=== PATIENT | female | born 1960 | race Caucasian/White ===

== ENCOUNTER 2020-02-21 09:47 | Observation (INO) | payer OTHER ==
[2020-02-21] MEDS ORDERED: LORazepam 2 MG/ML INJ IV STA (10:05)
--- NOTE | 2020-02-21 10:09 | ED ---
General Adult HPI - General Chief complaint: Altered Mental Status Stated complaint: AMS Time Seen by Provider: 02/21/20 09:53 Source: patient, RN notes reviewed Mode of arrival: EMS Limitations: no limitations - History of Present Illness Initial comments: Patient is a pleasant 59-year-old female presenting to the emergency department following an unresponsive episode. Patient has been at [place] for the past couple of days forbenzodiazepine withdrawal. Patient was placed on phenobarbital. Patient does remember waking up this morning. Does not much remember this episode. No history of similar symptoms previously. Patient Less Responsive Patient States She Feels Close to Normal at This Time However Still Feels Shaky. Patient States She Has Prim Shaky for the past Several Days. Patient Was Previously and Xanax 1 Mg 3 Times A Day.patient states she did not hurt herself. No headache. No chest pain or dyspnea. No isolated area of weakness. Patient states she feels slightly confused at this time - Related Data Home Medications Medication Instructions Recorded Confirmed Acetaminophen [Tylenol Arthritis] 650 mg PO Q4H PRN 02/21/20 02/21/20 Amoxic-Pot Clav 875-125Mg 1 tab PO Q12HR 02/21/20 02/21/20 [Augmentin 875-125] Calcium/Magnesium/Zinc 2 tab PO TID PRN 02/21/20 02/21/20 [Txbmrru-Mumahifrg-Yemg Tablet] Chlorpheniramine Maleate 4 mg PO DAILY PRN 02/21/20 02/21/20 [Chlor-Trimeton] Levalbuterol HCl [Xopenex] 1.25 mg INHALATION RT-Q6H PRN 02/21/20 02/21/20 Levothyroxine Sodium [Synthroid] 100 mcg PO DAILY 02/21/20 02/21/20 Multivitamins, Thera [Multivitamin 1 tab PO DAILY 02/21/20 02/21/20 (formulary)] PHENobarbitaL [PHENobarbital] See Taper PO DIRECTED 02/21/20 02/21/20 Thiamine [Vitamin B-1] 100 mg PO DAILY 02/21/20 02/21/20 predniSONE 50 mg PO DAILY 02/21/20 02/21/20 traZODone HCL [Desyrel] 50 - 150 mg PO HS 02/21/20 02/21/20 Allergies Allergy/AdvReac Type Severity Reaction Status Date / Time acetaminophen [From Vicodin] Allergy Unknown Verified 02/21/20 10:18 albuterol Allergy Unknown Verified 02/21/20 10:18 buspirone [From BuSpar] Allergy Unknown Verified 02/21/20 10:18 codeine Allergy Unknown Verified 02/21/20 10:18 diphenhydramine Allergy Unknown Verified 02/21/20 10:18 [From Benadryl] fentanyl Allergy Unknown Verified 02/21/20 10:18 hydrocodone [From Vicodin] Allergy Unknown Verified 02/21/20 10:18 hydromorphone [From Dilaudid] Allergy Unknown Verified 02/21/20 10:18 Iodine and Iodide Containing Allergy Unknown Verified 02/21/20 10:18 Produc ketorolac [From Toradol] Allergy Unknown Verified 02/21/20 10:18 lidocaine Allergy Unknown Verified 02/21/20 10:18 morphine Allergy Unknown Verified 02/21/20 10:18 mustard Allergy Unknown Verified 02/21/20 10:18 NSAIDS (Non-Steroidal Allergy Unknown Verified 02/21/20 10:18 Anti-Inflamma povidone-iodine Allergy Unknown Verified 02/21/20 10:18 [From Betadine] soap [From Betadine] Allergy Unknown Verified 02/21/20 10:18 Sulfa (Sulfonamide Allergy Unknown Verified 02/21/20 10:18 Antibiotics) Review of Systems ROS Statement: Those systems with pertinent positive or pertinent negative responses have been documented in the HPI. ROS Other: All systems not noted in ROS Statement are negative. Constitutional: Denies: fever Eyes: Denies: eye pain ENT: Denies: ear pain Respiratory: Denies: cough Cardiovascular: Denies: chest pain Endocrine: Denies: fatigue Gastrointestinal: Denies: abdominal pain Genitourinary: Denies: dysuria Musculoskeletal: Denies: back pain Skin: Denies: rash Neurological: Reports: as per HPI. Denies: headache Past Medical History Past Medical History: COPD, Thyroid Disorder Past Surgical History: Appendectomy, Back Surgery, Hysterectomy Past Psychological History: Anxiety, Depression Smoking Status: Current every day smoker Past Alcohol Use History: None Reported Past Drug Use History: Prescription Drug Abuse General Exam Limitations: no limitations General appearance: alert, in no apparent distress Head exam: Present: normocephalic Eye exam: Present: normal appearance, PERRL, EOMI. Absent: nystagmus ENT exam: Present: normal oropharynx Neck exam: Present: normal inspection. Absent: tenderness Respiratory exam: Present: normal lung sounds bilaterally Cardiovascular Exam: Present: regular rate, normal rhythm GI/Abdominal exam: Present: soft. Absent: tenderness Extremities exam: Present: normal inspection Neurological exam: Present: alert, oriented X3 (patient is slow to respond on the month), CN II-XII intact, other (mild resting tremor). Absent: motor sensory deficit Expanded Neurological exam: Present: protecting the airway Patient oriented to: Present: person, place, time Speech: Present: fluid speech Cranial nerves: EOM's Intact: Normal, Facial Sensation: Normal Cerebellar function: Finger to Nose: Normal Sensory exam: Upper Extremity Light Touch: Normal, Lower Extremity Light Touch: Normal Motor strength exam: RUE: 5, LUE: 5, RLE: 5, LLE: 5 Eye Response: (4) open spontaneously Motor Response: (6) obeys commands Verbal Response: (5) oriented Psychiatric exam: Present: normal affect, normal mood Skin exam: Present: normal color Course Vital Signs 02/21/20 09:52 Temperature 98.1 F Pulse Rate 79 Respiratory 16 Rate Blood Pressure 113/76 O2 Sat by Pulse 99 Oximetry EKG Findings - EKG Comments: EKG Findings:: normal sinus rhythm at 72. MO 136. QRS 86. QT 408. QTC 446. Normal axis. Normal QRS. No acute ST change. Medical Decision Making - Medical Decision Making Patient reevaluated and improved, no tremors. Patient updated on results and plan. Case was discussed in detail with Dr. Forman, who will admit covering for hospital call. Patient had probable unwitnessed seizure secondary to found unre sponsive with some confusion that is improving as well as recentlycoming off of benzodiazepine. - Lab Data Result diagrams: 02/21/20 10:21 02/21/20 10:21 Lab Results 02/21/20 02/21/20 02/21/20 Range/Units 10:14 10:21 10:21 WBC 4.3 (3.8-10.6) k/uL RBC 4.55 (3.80-5.40) m/uL Hgb 14.0 (11.4-16.0) gm/dL Hct 42.7 (34.0-46.0) % MCV 93.9 (80.0-100.0) fL MCH 30.7 (25.0-35.0) pg MCHC 32.7 (31.0-37.0) g/dL RDW 13.1 (11.5-15.5) % Plt Count 233 (150-450) k/uL Neutrophils % 72 % Lymphocytes % 16 % Monocytes % 7 % Eosinophils % 3 % Basophils % 1 % Neutrophils # 3.1 (1.3-7.7) k/uL Lymphocytes # 0.7 L (1.0-4.8) k/uL Monocytes # 0.3 (0-1.0) k/uL Eosinophils # 0.1 (0-0.7) k/uL Basophils # 0.1 (0-0.2) k/uL Sodium (137-145) mmol/L Potassium (3.5-5.1) mmol/L Chloride (98-107) mmol/L Carbon Dioxide (22-30) mmol/L Anion Gap mmol/L BUN (7-17) mg/dL Creatinine (0.52-1.04) mg/dL Est GFR (CKD-EPI)AfAm (>60 ml/min/1.73 sqM) Est GFR (CKD-EPI)NonAf (>60 ml/min/1.73 sqM) Glucose (74-99) mg/dL POC Glucose (mg/dL) 116 H (75-99) mg/dL POC Glu Right Of Way Buyer ID Kristi Addison Calcium (8.4-10.2) mg/dL Magnesium (1.6-2.3) mg/dL Total Bilirubin (0.2-1.3) mg/dL AST (14-36) U/L ALT (4-34) U/L Alkaline Phosphatase (38-126) U/L Creatine Kinase (30-135) U/L Troponin I (0.000-0.034) ng/mL Total Protein (6.3-8.2) g/dL Albumin (3.5-5.0) g/dL TSH (0.465-4.680) mIU/L Free T4 (0.78-2.19) ng/dL Free T3 pg/mL (2.8-5.3) pg/ml Urine Color Light Yellow Urine Appearance Clear (Clear) Urine pH 6.0 (5.0-8.0) Ur Specific [place] 1.010 (1.001-1.035) Urine Protein Negative (Negative) Urine Glucose (UA) Negative (Negative) Urine Ketones 2+ H (Negative) Urine Blood Trace H (Negative) Urine Nitrite Negative (Negative) Urine Bilirubin Negative (Negative) Urine Urobilinogen <2.0 (<2.0) mg/dL Ur Leukocyte Esterase Negative (Negative) Urine RBC 1 (0-5) /hpf Urine WBC 2 (0-5) /hpf Ur Squamous Epith Cells 1 (0-4) /hpf Urine Bacteria Rare H (None) /hpf Urine Mucus Moderate H (None) /hpf 02/21/20 02/21/20 Range/Units 10:21 10:21 WBC (3.8-10.6) k/uL RBC (3.80-5.40) m/uL Hgb (11.4-16.0) gm/dL Hct (34.0-46.0) % MCV (80.0-100.0) fL MCH (25.0-35.0) pg MCHC (31.0-37.0) g/dL RDW (11.5-15.5) % Plt Count (150-450) k/uL Neutrophils % % Lymphocytes % % Monocytes % % Eosinophils % % Basophils % % Neutrophils # (1.3-7.7) k/uL Lymphocytes # (1.0-4.8) k/uL Monocytes # (0-1.0) k/uL Eosinophils # (0-0.7) k/uL Basophils # (0-0.2) k/uL Sodium 136 L (137-145) mmol/L Potassium 3.9 (3.5-5.1) mmol/L Chloride 102 (98-107) mmol/L Carbon Dioxide 27 (22-30) mmol/L Anion Gap 7 mmol/L BUN 6 L (7-17) mg/dL Creatinine 0.54 (0.52-1.04) mg/dL Est GFR (CKD-EPI)AfAm >90 (>60 ml/min/1.73 sqM) Est GFR (CKD-EPI)NonAf >90 (>60 ml/min/1.73 sqM) Glucose 120 H (74-99) mg/dL POC Glucose (mg/dL) (75-99) mg/dL POC Glu Right Of Way Buyer ID Calcium 9.2 (8.4-10.2) mg/dL Magnesium 2.1 (1.6-2.3) mg/dL Total Bilirubin 0.8 (0.2-1.3) mg/dL AST 26 (14-36) U/L ALT 13 (4-34) U/L Alkaline Phosphatase 53 (38-126) U/L Creatine Kinase 223 H (30-135) U/L Troponin I <0.012 (0.000-0.034) ng/mL Total Protein 7.1 (6.3-8.2) g/dL Albumin 4.2 (3.5-5.0) g/dL TSH 6.500 H (0.465-4.680) mIU/L Free T4 1.23 (0.78-2.19) ng/dL Free T3 pg/mL 2.8 (2.8-5.3) pg/ml Urine Color Urine Appearance (Clear) Urine pH (5.0-8.0) Ur Specific [place] (1.001-1.035) Urine Protein (Negative) Urine Glucose (UA) (Negative) Urine Ketones (Negative) Urine Blood (Negative) Urine Nitrite (Negative) Urine Bilirubin (Negative) Urine Urobilinogen (<2.0) mg/dL Ur Leukocyte Esterase (Negative) Urine RBC (0-5) /hpf Urine WBC (0-5) /hpf Ur Squamous Epith Cells (0-4) /hpf Urine Bacteria (None) /hpf Urine Mucus (None) /hpf - Radiology Data Radiology results: report reviewed (computed tomography scan of brain shows no acute hemorrhage or shift. Mild bilateral frontal lobe atrophy), image reviewed (chest x-ray shows no acute process.) Disposition Clinical Impression: Unresponsive episode Disposition: ADMITTED IP TO THIS HOSP Is patient prescribed a controlled substance at d/c from ED?: No Referrals: Nonstaff,Physician [Primary Care Provider] - 1-2 days Decision Time: 11:35
[2020-02-21 10:26] LABS: Glucose,Whole Blood 116 mg/dL (75-99)
[2020-02-21 10:28] LABS: Basophils # (A) 0.1 k/uL (0-0.2); Basophils % (A) 1 %; Eosinophils # (A) 0.1 k/uL (0-0.7); Eosinophils % (A) 3 %; HCT 42.7 % (34.0-46.0); Lymphocytes # (A) 0.7 k/uL (1.0-4.8); Lymphocytes % (A) 16 %; MCH 30.7 pg (25.0-35.0); MCHC 32.7 g/dL (31.0-37.0); MCV 93.9 fL (80.0-100.0); Mean Platelet Volume 8.4; Monocytes # (A) 0.3 k/uL (0-1.0); Monocytes % (A) 7 %; Neutrophils # (A) 3.1 k/uL (1.3-7.7); Neutrophils % (A) 72 %; Platelet Count 233 k/uL (150-450); RBC 4.55 m/uL (3.80-5.40); RDW 13.1 % (11.5-15.5); WBC 4.3 k/uL (3.8-10.6)
[2020-02-21 10:38] LABS: ALT 13 U/L (4-34); African American GFR (CKD) >90 (>60 ml/min/1.73 sqM); Albumin 4.2 g/dL (3.5-5.0); Anion Gap 7 mmol/L; Blood Urea Nitrogen 6 mg/dL (7-17); Calcium 9.2 mg/dL (8.4-10.2); Carbon Dioxide 27 mmol/L (22-30); Chloride 102 mmol/L (98-107); Creatine Kinase 223 U/L (30-135); Glucose 120 mg/dL (74-99); Non-African American GFR(CKD) >90 (>60 ml/min/1.73 sqM); Sodium 136 mmol/L (137-145); Total Bilirubin 0.8 mg/dL (0.2-1.3); Total Protein 7.1 g/dL (6.3-8.2)
[2020-02-21 10:39] LABS: AST 26 U/L (14-36); Alkaline Phosphatase 53 U/L (38-126); Magnesium 2.1 mg/dL (1.6-2.3); Potassium 3.9 mmol/L (3.5-5.1)
[2020-02-21 10:40] LABS: Appearance,Urine Clear (Clear); Bacteria,Urine Rare /hpf; Bilirubin,Urine Negative (Negative); Blood,Urine Trace (Negative); Color,Urine Light Yellow; Glucose,Urine (UA) Negative (Negative); Ketones,Urine 2+ (Negative); Leukocyte Esterase,Urine Negative (Negative); Mucus,Urine Moderate /hpf; Nitrite,Urine Negative (Negative); Protein,Urine Negative (Negative); RBC,Urine 1 /hpf (0-5); Squamous Epithelial Cell,Urine 1 /hpf (0-4); Urobilinogen,Urine <2.0 mg/dL (<2.0); WBC,Urine 2 /hpf (0-5)
[2020-02-21] MEDS: SODIUM CHLORIDE 0.9% 1,000 ML IV STA ×2 (10:47→12:34)
[2020-02-21 10:54] LABS: T4, Free (Free Thyroxine) 1.23 ng/dL (0.78-2.19)
--- NOTE | 2020-02-21 11:14 | XR ---
EXAMINATION TYPE: XR chest 1V portable DATE OF EXAM: 02/21/2020 COMPARISON: NONE HISTORY: Unresponsive episode. Weakness. TECHNIQUE: Single frontal view of the chest is obtained. FINDINGS: Reticular interstitial prominence favors chronic change at the location of calcifi ed small nodule or granuloma throughout the right upper lung noted. There is no focal air space opaci ty, pleural effusion, or pneumothorax seen. The cardiac silhouette size is upper limits of normal. The osseous structures are intact. IMPRESSION: No acute process.
--- NOTE | 2020-02-21 11:15 | CT ---
EXAMINATION TYPE: CT brain wo con DATE OF EXAM: 02/21/2020 HISTORY: seizure activity. Unresponsive. CT DLP: 1098.4 mGycm. Automated Exposure Control for Dose Reduction was Utilized. TECHNIQUE: CT scan of the head is performed without contrast. COMPARISON: None. FINDINGS: There is no acute intracranial hemorrhage or midline shift identified. Mild generalized b ilateral frontal lobe atrophy. Amezcua-white matter differentiation maintained. The globes are intact a nd the visualized sinuses are clear. IMPRESSION: No acute intracranial hemorrhage or midline shift. Mild bilateral frontal lobe atrophy.
[2020-02-21] MEDS ORDERED: LORazepam 2 MG/ML INJ IV PRN ×2 (11:35→23:00)
[2020-02-21] MEDS ORDERED: NALOXONE 0.4 MG/ML 1 ML VIAL IV PRN (11:36)
[2020-02-21] MEDS ORDERED: SODIUM CHLORIDE 0.9% 1,000 ML IV SCH (11:45)
[2020-02-21] MEDS ORDERED: 0.9% NACL WITH KCL 20 MEQ/L 1,000 ML IV ONE (13:30)
[2020-02-21] MEDS ORDERED: ALPRAZolam 0.5 MG TAB PO SCH (16:00)
[2020-02-21] MEDS ORDERED: ACETAMINOPHEN TAB 325 MG TAB PO PRN (16:56)
[2020-02-21] MEDS ORDERED: LEVALBUTEROL HCL 1.25 MG/3 ML INHALATION PRN (16:56)
[2020-02-21] MEDS ORDERED: NON FORMULARY DRUG (Calcium/Magnesium/Zinc [Calcium-Magnesium-Zinc Tablet] 1 EACH Tablet) PO PRN (16:56)
--- NOTE | 2020-02-21 17:59 | HP ---
HISTORY AND PHYSICAL DATE OF SERVICE: 02/21/2020 CHIEF COMPLAINT: Change in mental status. HISTORY OF PRESENT ILLNESS: This 59-year-old woman with a past medical history of multiple medical problems including history of COPD, hypothyroidism, back surgery, anxiety, depression was apparently receiving Xanax prescriptions. Patient lives in . Patient was [facility] for benzodiazepine withdrawal. The patient was placed on phenobarbital apparently. The patient was not waking up this morning. Patient was confused. Patient taken to [facility] and admitted for further evaluation and treatment. A CT of the brain, chest x-ray was done which did not show any acute abnormality. There is no history of fever, rigors, chills. At this time, the patient is slightly drowsy but is able to answer questions at this time. PAST MEDICAL HISTORY: History of COPD, hypothyroidism, appendectomy, back surgery. MEDICATIONS: Prior to admission home medications are: 1. Trazodone. 2. Prednisone. 3. Vitamin B1. 4. Phenobarbital. 5. Multivitamins. 6. Synthroid. 7. Xopenex. 8. Chlor-Trimeton. 9. Calcium with magnesium oxide. 10.Augmentin. 11.Tylenol Arthritis. ALLERGIES: MULTIPLE ALLERGIES INCLUDE VICODIN, ALBUTEROL, BUSPAR, CODEINE, BENADRYL, FENTANYL, DILAUDID, TORADOL, LIDOCAINE, MORPHINE, NSAIDS, BETADINE, SULFA. PHYSICAL EXAM: Patient is alert, oriented x2. Pulse is 88. Blood pressure 105/60, respirations 16, temperature 99.2, pulse ox 98% on room air. HEENT: Conjunctivae normal. NECK: No JVD. CARDIOVASCULAR; S1, S2 muffled. RESPIRATION: Breath sounds diminished in the bases. A few scattered rhonchi. No crackles. ABDOMEN: Soft, nontender. No mass palpable. LEGS no edema. No swelling. Nervous system: Higher functions as mentioned earlier. Moves all 4 limbs. No focal motor or sensory deficits. LYMPHATICS: No lymph nodes palpable in the neck, axilla or groin. SKIN: No ulcer. No rash. No bleeding. JOINTS: No active deforming arthropathy. LABS: CBC within normal limits. Sodium is 136. TSH is 6.500. ASSESSMENT: 1. Change in mental status, acute metabolic encephalopathy, possibly medication induced. 2. History of Xanax dependence. 3. Hyponatremia. 4. History of chronic obstructive pulmonary disease. 5. Hypothyroidism. 6. History of appendectomy. 7. History of back surgery. 8. History of anxiety/depression. 9. History of nicotine dependence. 10.FULL CODE. RECOMMENDATIONS AND DISCUSSION: This 59-year-old woman who presented with multiple complex medical issues, we will monitor the patient closely, continue the current medications, management and symptomatic treatment. Recommend monitor closely. Neurology consultation. Psychiatric consultation. Otherwise, guarded prognosis because of multiple complex medical issues. Further recommendations to follow. Resume the home medications. Hold off sedatives at this time. Repeat labs also recommended. Further recommendations to follow. MMODL / IJN: [id number] / ANG
[2020-02-21] MEDS: AMOXIC-POT CLAV 875-125MG 1 EACH TAB PO SCH (19:58)
[2020-02-21 23:02] LABS: Amphetamine Screen,Urine Not Detected (NotDetected); Barbiturate Screen,Urine Detected (NotDetected); Benzodiazepines Screen,Urine Detected (NotDetected); Cocaine Screen,Urine Not Detected (NotDetected); Methadone Screen, Urine Not Detected (NotDetected); Opiate Screen,Urine Not Detected (NotDetected); Oxycodone Screen, Urine Not Detected (NotDetected); Phencyclidine Screen,Urine Not Detected (NotDetected); Tricyclic Antidepressant,Urine Not Detected (NotDetected); Urn Cannabinoid Scrn Not Detected (NotDetected)
[2020-02-22] MEDS: LEVOTHYROXINE 100 MCG TAB PO SCH (06:12)
--- NOTE | 2020-02-22 07:33 | P.PN ---
Subjective This is a pleasant 59 years old female with multiple medical problems including COPD, Or hypothyroidism, back surgery, anxiety and depression. She was on Xanax and went to [place], there she got phenobarbital rash and she was sent to this hospital because of altered mental status. Workup included CT of the brain and chest x-ray which are unremarkable. Today patient is fully awake and oriented and calm sitting at the age of the bed with no specific complaint currently, she knows she is in [facility] and she was wanted she come from and why. She's been experiencing chest pain every day which lysis for half an hour, she had good this morning at [facility], nonradiating felt like Dull. No dyspnea or coughing. Currently she is chest pain-free. She smokes about 1 pack per day, no alcohol or illicit drugs. She feels a little bit depressed but no overt hopelessness/helplessness, she denies suicidal or homicidal ideation Vitals and labs were reviewed Neurology and psychiatry were already been consulted. Ruled out for cardiology consult in view of her chest pain, order echocardiogram Objective - Vital Signs Vital signs: Vital Signs Temp 98.1 F 02/21/20 21:00 Pulse 64 02/22/20 03:00 Resp 16 02/22/20 03:00 BP 105/66 02/22/20 03:00 Pulse Ox 96 02/22/20 03:00 Intake & Output 02/21/20 02/22/20 02/22/20 18:59 06:59 18:59 Output Total 750 Balance -750 Weight 70.307 kg Output: Urine 750 Other: Voiding Method Toilet Toilet # Voids 1 - Exam GENERAL: The patient is alert and oriented x3, not in any acute distress. Well developed, well nourished. HEENT: Pupils are round and equally reacting to light. EOMI. No scleral icterus. No conjunctival pallor. Normocephalic, atraumatic. No pharyngeal erythema. No thyromegaly. CARDIOVASCULAR: S1 and S2 present. No murmurs, rubs, or gallops. PULMONARY: Chest is clear to auscultation, no wheezing or crackles. ABDOMEN: Soft, nontender, nondistended, normoactive bowel sounds. No palpable organomegaly. MUSCULOSKELETAL: No joint swelling or deformity. EXTREMITIES: No cyanosis, clubbing, or pedal edema. NEUROLOGICAL: Gross neurological examination did not reveal any focal deficits. SKIN: No rashes. no petechiae. - Labs CBC & Chem 7: 02/21/20 10:21 02/21/20 10:21 Labs: Abnormal Lab Results - Last 24 Hours (Table) 02/21/20 02/21/20 02/21/20 Range/Units 10:14 10:21 10:21 Lymphocytes # 0.7 L (1.0-4.8) k/uL Sodium (137-145) mmol/L BUN (7-17) mg/dL Glucose (74-99) mg/dL POC Glucose (mg/dL) 116 H (75-99) mg/dL Creatine Kinase (30-135) U/L TSH (0.465-4.680) mIU/L Urine Ketones 2+ H (Negative) Urine Blood Trace H (Negative) Urine Bacteria Rare H (None) /hpf Urine Mucus Moderate H (None) /hpf Ur Barbiturates Screen (NotDetected) U Benzodiazepines Scrn (NotDetected) 02/21/20 02/21/20 Range/Units 10:21 20:04 Lymphocytes # (1.0-4.8) k/uL Sodium 136 L (137-145) mmol/L BUN 6 L (7-17) mg/dL Glucose 120 H (74-99) mg/dL POC Glucose (mg/dL) (75-99) mg/dL Creatine Kinase 223 H (30-135) U/L TSH 6.500 H (0.465-4.680) mIU/L Urine Ketones (Negative) Urine Blood (Negative) Urine Bacteria (None) /hpf Urine Mucus (None) /hpf Ur Barbiturates Screen Detected H (NotDetected) U Benzodiazepines Scrn Detected H (NotDetected) Assessment and Plan Assessment: Chest pain, rule out cardiac causes. Negative d-dimer. We'll consult cardiology and echocardiogram with serial troponin Toxic encephalopathy secondary to benzodiazepines Xanax and phenobarbital. Psychiatric and neurological review consulted. Patient is fully awake and was cleared she can go back to [place] or discharge home Benzodiazepine withdrawal, recommend patient go back to [place] upon discharge Hypothyroidism. Her TSH was normal T4 and T3. Continue with levothyroxine and recheck thyroid function test in 1-2 months with her PCP History of back surgery History of PFO, follow-up with information security risk analyst Dr. Harvinder Bailon, last visit was about 3 years ago. Follow-up with information security risk analyst upon discharge Anxiety, depression. Psychiatric evaluation for the patient Nicotine dependence DVT prophylaxis: Patient is mobile and low risk, no need for heparin GI prophylaxis: Pepcid
[2020-02-22 08:03] LABS: Basophils % (A) 1 %; Eosinophils # (A) 0.2 k/uL (0-0.7); Eosinophils % (A) 4 %; HCT 39.2 % (34.0-46.0); HGB 12.6 gm/dL (11.4-16.0); Lymphocytes # (A) 1.3 k/uL (1.0-4.8); Lymphocytes % (A) 22 %; MCH 30.9 pg (25.0-35.0); MCV 96.6 fL (80.0-100.0); Mean Platelet Volume 9.5; Monocytes # (A) 0.5 k/uL (0-1.0); Monocytes % (A) 8 %; Neutrophils # (A) 3.9 k/uL (1.3-7.7); Neutrophils % (A) 65 %; Platelet Count 215 k/uL (150-450); RBC 4.06 m/uL (3.80-5.40); RDW 13.5 % (11.5-15.5)
[2020-02-22 08:15] LABS: African American GFR (CKD) >90 (>60 ml/min/1.73 sqM); Anion Gap 3 mmol/L; Blood Urea Nitrogen 14 mg/dL (7-17); Calcium 8.8 mg/dL (8.4-10.2); Carbon Dioxide 25 mmol/L (22-30); Chloride 109 mmol/L (98-107); Glucose 135 mg/dL (74-99); Non-African American GFR(CKD) 89 (>60 ml/min/1.73 sqM); Sodium 137 mmol/L (137-145)
[2020-02-22] MEDS: FAMOTIDINE 20 MG TAB PO SCH (08:57)
[2020-02-22] MEDS: MULTIVITAMINS, THERA 1 EACH TAB PO SCH (08:57)
[2020-02-22] MEDS: THIAMINE 100 MG TAB PO SCH (08:58)
--- NOTE | 2020-02-22 10:33 | P.CNNES ---
History of Present Illness Consult date: 02/22/20 Requesting physician: Rachel Forman Reason for Consult: episode of unresponsiveness, possible benzodiazepine withdrawl History of Present Illness: This is a 79-year-old woman with medical history of hypothyroidism, COPD, and anxiety that presented to the emergency department on 02/21/2020 for an episode of unresponsiveness. Patient the has been at the [facility] for the past one week for benzodiazepine withdrawal. She's been placed on the phenobarbital. She said she was on Xanax f1mg tid for past 30 years and was suddenly stopped off Xanax for one week. On 02/21/20 she became unresponsive. She said she looked at her smart watch and saw her heart rate drop prior to episode and felt generalized weakness. She does not recall the event. She was told she had urinary incontinence. She denies bowel incontinence or tongue bite. She denies seizure in the past. She denies alcohol use or illicit drug use. She is a product of normal vaginal delivery, term without complication. Hospital workup consisted of: CT of the head which was reported as no acute intracranial hemorrhage or midline shift. Mild lateral frontal lobe atrophy. I did personally review the CT of the head and I did not feel there is any acute ischemia, hemorrhage or any significant encephalomalacia. Patient did have mild bilateral frontal atrophy. EKG was reported as normal sinus rhythm. Ventricular rate of 72. Normal EKG. Serum glucose was 120 on presentation. In the hospital the patient was placed on Xanax 0.5 mg by mouth 3 times a day. Also received the 1 mg of Ativan at in the ED at. Patient is also on Ativan 1 mg every 4 hours when necessary for seizure. Review of Systems Review of system: The 12 point system was reviewed and apparent positive and negative per HPI. Past Medical History Past Medical History: COPD, Thyroid Disorder History of Any Multi-Drug Resistant Organisms: None Reported Past Surgical History: Appendectomy, Back Surgery, Hysterectomy Past Psychological History: Anxiety, Depression Smoking Status: Current every day smoker Past Alcohol Use History: None Reported Past Drug Use History: Prescription Drug Abuse - Past Family History Father Family Medical History: COPD Mother Family Medical History: Cancer Medications and Allergies Home Medications Medication Instructions Recorded Confirmed Type Acetaminophen [Tylenol Arthritis] 650 mg PO Q4H PRN 02/21/20 02/21/20 History Calcium/Magnesium/Zinc 2 tab PO TID PRN 02/21/20 02/21/20 History [Zmxyosd-Goamvzzxn-Mbzv Tablet] Chlorpheniramine Maleate 4 mg PO DAILY PRN 02/21/20 02/21/20 History [Chlor-Trimeton] Levalbuterol HCl [Xopenex] 1.25 mg INHALATION RT-Q6H PRN 02/21/20 02/21/20 History Levothyroxine Sodium [Synthroid] 100 mcg PO DAILY 02/21/20 02/21/20 History Multivitamins, Thera [Multivitamin 1 tab PO DAILY 02/21/20 02/21/20 History (formulary)] PHENobarbitaL [PHENobarbital] See Taper PO DIRECTED 02/21/20 02/21/20 History Thiamine [Vitamin B-1] 100 mg PO DAILY 02/21/20 02/21/20 History predniSONE 50 mg PO DAILY 02/21/20 02/21/20 History traZODone HCL [Desyrel] 50 - 150 mg PO HS 02/21/20 02/21/20 History Allergies Allergy/AdvReac Type Severity Reaction Status Date / Time acetaminophen [From Vicodin] Allergy Unknown Verified 02/21/20 10:18 albuterol Allergy Unknown Verified 02/21/20 10:18 buspirone [From BuSpar] Allergy Unknown Verified 02/21/20 10:18 codeine Allergy Unknown Verified 02/21/20 10:18 diphenhydramine Allergy Unknown Verified 02/21/20 10:18 [From Benadryl] fentanyl Allergy Unknown Verified 02/21/20 10:18 hydrocodone [From Vicodin] Allergy Unknown Verified 02/21/20 10:18 hydromorphone [From Dilaudid] Allergy Unknown Verified 02/21/20 10:18 Iodine and Iodide Containing Allergy Unknown Verified 02/21/20 10:18 Produc ketorolac [From Toradol] Allergy Unknown Verified 02/21/20 10:18 lidocaine Allergy Unknown Verified 02/21/20 10:18 morphine Allergy Unknown Verified 02/21/20 10:18 mustard Allergy Unknown Verified 02/21/20 10:18 NSAIDS (Non-Steroidal Allergy Unknown Verified 02/21/20 10:18 Anti-Inflamma povidone-iodine Allergy Unknown Verified 02/21/20 10:18 [From Betadine] soap [From Betadine] Allergy Unknown Verified 02/21/20 10:18 Sulfa (Sulfonamide Allergy Unknown Verified 02/21/20 10:18 Antibiotics) Physical Examination - Vital Signs Vital Signs: Vital Signs Temp Pulse Pulse Resp BP BP Pulse Ox 02/22/20 03:00 64 16 105/66 96 02/21/20 21:00 98.1 F 82 18 111/59 93 L 02/21/20 15:47 99.2 F 88 16 104/64 96 02/21/20 12:35 98.5 F 72 16 95/63 97 02/21/20 12:03 98.1 F 72 16 119/75 99 02/21/20 11:56 98.1 F 72 16 119/75 99 02/21/20 10:56 98.1 F 70 16 115/70 99 02/21/20 09:52 98.1 F 79 16 113/76 99 Intake and Output 02/21/20 02/22/20 02/22/20 22:59 06:59 14:59 Output Total 500 250 Balance -500 -250 Output: Urine 500 250 Other: Voiding Method Toilet Toilet # Voids 2 1 GENERAL: The patient is lying in bed and is not in acute distress. CHEST: The heart rate is regular rate rhythm. No murmurs to auscultation. LUNG: Clear to auscultation bilaterally no wheezing noted throughout. Not labored breathing. ABDOMEN/GI: Bowel sounds present in all 4 quadrants. No tenderness to palpation throughout. NEUROLOGICAL: Higher mental function: The patient is awake, alert, oriented to self, place and time. Patient is following commands. No aphasia and no neglect. Cranial nerves: The pupils are round, equal and reactive to light and accommodation. Visual lemon are full to confrontation throughout. Extraocular movement is intact no nystagmus is noted. Facial sensation is normal to touch throughout. The facial strength is normal throughout. Hearing is normal bilaterally to hand rub. Tongue is midline and moved [id number] without any difficulty. No dysarthria is noted. Shoulder shrug is normal bilaterally. Motor: The strength is 5 over 5 throughout. Normal tone and bulk. Cerebellum: Normal finger to nose heel to chin bilaterally. Sensation: Sensation is normal to touch throughout. Reflexes (right/left): 2+ Plantars are downgoing bilaterally. Results AST of 26, ALT of 13. Calcium of 9.2. Magnesium 2.1. CK of 223. - Laboratory Findings CBC and BMP: 02/22/20 07:00 02/22/20 07:00 Abnormal Lab Findings: Abnormal Labs 02/21/20 02/21/20 02/21/20 10:14 10:21 10:21 Lymphocytes # 0.7 L Sodium BUN Glucose POC Glucose (mg/dL) 116 H Creatine Kinase TSH Urine Ketones 2+ H Urine Blood Trace H Urine Bacteria Rare H Urine Mucus Moderate H Ur Barbiturates Screen U Benzodiazepines Scrn 02/21/20 02/21/20 10:21 20:04 Lymphocytes # Sodium 136 L BUN 6 L Glucose 120 H POC Glucose (mg/dL) Creatine Kinase 223 H TSH 6.500 H Urine Ketones Urine Blood Urine Bacteria Urine Mucus Ur Barbiturates Screen Detected H U Benzodiazepines Scrn Detected H Assessment and Plan Assessment: Episode of unresponsiveness, due to benzo withdrawal Chronic Benzodiazepine use (Xanax) Anxiety Panic attack Hypothyroidism Plan: Currently the patient is on Xanax 0.5 mg by mouth 3 times a day. Patient is also on Ativan 1 mg every 4 hours when necessary for seizure. On Ativan 0.5 g IV twice a day when necessary for anxiety. Ordered routine EEG. No antiepileptic is needed at this time unless epileptiform discharges or seizure seen on EEG. Recommend tapering dose of Ativan on the long-term. Continue thiamine 100 mg daily. UPDATE: EEG: NORMAL. No epileptiform discharge or seizure noted. No anti-epileptic medication is needed. Thank you for the consult. Will sign off. Please reconsult if needed. Jose Raul Bahena M.D. Neuro-hospitalist Time with Patient: Greater than 30
[2020-02-22] MEDS: predniSONE 50 MG TAB PO SCH (10:40)
[2020-02-22] MEDS: AMOXIC-POT CLAV 875-125MG 1 EACH TAB PO SCH ×2 (10:40→20:58)
--- NOTE | 2020-02-22 10:47 | ECHOF ---
Referral Reason:Rule out heart disease MEASUREMENTS -------- HEIGHT: 165.1 cm WEIGHT: 70.3 kg BP: 105/66 RVIDd: 3.5 cm (< 3.3) IVSd: 0.8 cm (0.6 - 1.1) LVIDd: 4.3 cm (3.9 - 5.3) LVPWd: 0.9 cm (0.6 - 1.1) IVSs: 1.3 cm LVIDs: 2.8 cm LVPWs: 1.4 cm LA Diam: 3.0 cm (2.7 - 3.8) LAESV Index (A-L): 25.22 ml/m Ao Diam: 3.1 cm (2.0 - 3.7) AV Cusp: 1.8 cm (1.5 - 2.6) MV EXCURSION: 18.048 mm (> 18.000) MV EF SLOPE: 130 mm/s (70 - 150) EPSS: 0.2 cm MV E Guilherme: 0.82 m/s MV DecT: 176 ms MV A Guilherme: 0.60 m/s MV E/A Ratio: 1.36 RAP: 5.00 mmHg RVSP: 26.31 mmHg FINDINGS -------- Sinus rhythm. This was a technically good study. The left ventricular size is normal. Left ventricular wall thickness is normal. Overall left vent ricular systolic function is normal with, an EF between 55 - 60 %. The right ventricle is mildly enlarged. Normal LA size by volume 22+/-6 ml/m2. The right atrium is normal in size. Patent foramen ovale present with LEFT to RIGHT shunt. Interatrial and interventricular septum intac t. The aortic valve is trileaflet and appears structurally normal. Mild mitral regurgitation is present. Mild tricuspid regurgitation present. Right ventricular systolic pressure is normal at < 35 mmHg. The pulmonic valve was not well visualized. The aortic root size is normal. Normal inferior vena cava with normal inspiratory collapse consistent with estimated right atrial pre ssure of 5 mmHg. The inferior vena cava is mildly dilated. There is no pericardial effusion. CONCLUSIONS -------- 1. The left ventricular size is normal. 2. Left ventricular wall thickness is normal. 3. Overall left ventricular systolic function is normal with, an EF between 55 - 60 %. 4. The right ventricle is mildly enlarged. 5. Interatrial and interventricular septum intact. 6. Mild mitral regurgitation is present. 7. Mild tricuspid regurgitation present. 8. There is no pericardial effusion. INSURANCE AUDITOR: Lorena Duran RDCS
--- NOTE | 2020-02-22 10:50 | P.CRDCN ---
History of Present Illness Consult date: 02/22/20 History of present illness: CHIEF COMPLAINT: Chest pain HISTORY OF PRESENT ILLNESS: This is a 59-year old female with a past medical history significant for COPD, hypothyroidism, anxiety, depression, and nicotine dependence. Patient follows with a interactive marketing strategist out of [facility] but has not seen him for approximately 3 years. We have been asked to see the patient in consultation for chest pain. Patient is admitted to the hospital after having an unresponsive episode at [facility]. Patient states she was at [facility] because she "wanted to detox from Xanax". Patient states she has had left-sided chest pain intermittently for several months. She states these episodes sometimes occur when she is having anxiety and sometimes happen when she is just sitting around watching TV. She states she never has any radiation to her arm, back, or jaw. She denies shortness of breath. She states she had an episode of chest discomfort yesterday while watching TV that resolved on its own. She currently denies chest pain or pressure. She denies redness of breath. She reports she was hospitalized in September 2019 at a hospital in [place] and underwent a stress test at that time which she reports was negative. She also reports having a heart cath approximately 10 years ago due to an abnormal troponin level. She states it was normal to her knowledge and she did not require any stents. DIAGNOSTICS: EKG reveals sinus rhythm without signs of acute ischemia Chest xray negative for acute process Laboratory data: WBC 6.0. Hemoglobin 12.6. Platelet count 2:15. D-dimer 0.27. Sodium 137. Potassium 4.0. BUN 14. Creatinine 0.75. Magnesium 2.1. Troponin negative 2. Current home cardiac medications include: none REVIEW OF SYSTEMS: At the time of my exam: CONSTITUTIONAL: Denies fever or chills. HEENT: Denies blurred vision, vision changes, or eye pain. Denies hemoptysis CARDIOVASCULAR: Denies chest pain, orthopnea, PND or palpitations RESPIRATORY: No shortness of breath. GASTROINTESTINAL: Denies abdominal pain. Denies nausea or vomiting. HEMATOLOGIC: Denies bleeding disorders. GENITOURINARY: Denies any blood in urine. SKIN: Denies pruitis. Denies rash. PHYSICAL EXAM: VITAL SIGNS: Reviewed. GENERAL: Well-developed in no acute distress. HEENT: Head is normocephalic. Pupils are equal, round. Sclerae anicteric. Mucous membranes of the mouth are moist. Neck supple. No JVD or thyromegaly LUNGS: Respirations even and unlabored. Lungs essentially clear to auscultation bilaterally. HEART: Regular rate and rhythm. S1 and S2 heard. ABDOMEN: Soft. Nondistended. Nontender. EXTREMITIES: Normal range of motion. No clubbing or cyanosis. Peripheral pulses intact. No lower extremity edema NEUROLOGIC: Awake and alert. Oriented x 3. ASSESSMENT: Chest pain, intermittent for several months. troponin negative x 2 History of known PFO COPD Hypothyroidism Anxiety Depression Nicotine dependence PLAN: Trend serial troponins Obtain 2-D echo to assess cardiac structure and function If no significant abnormality noted on echocardiogram, patient may be discharged home from a cardiac perspective Patient encouraged to follow-up with her interactive marketing strategist in [place] outpatient Nurse practitioner note has been reviewed by physician. Signing provider agrees with the documented findings, assessment, and plan of care. Past Medical History Past Medical History: COPD, Thyroid Disorder History of Any Multi-Drug Resistant Organisms: None Reported Past Surgical History: Appendectomy, Back Surgery, Hysterectomy Past Psychological History: Anxiety, Depression Smoking Status: Current every day smoker Past Alcohol Use History: None Reported Past Drug Use History: Prescription Drug Abuse - Past Family History Father Family Medical History: COPD Mother Family Medical History: Cancer Medications and Allergies Home Medications Medication Instructions Recorded Confirmed Type Acetaminophen [Tylenol Arthritis] 650 mg PO Q4H PRN 02/21/20 02/21/20 History Amoxic-Pot Clav 875-125Mg 1 tab PO Q12HR 02/21/20 02/21/20 History [Augmentin 875-125] Calcium/Magnesium/Zinc 2 tab PO TID PRN 02/21/20 02/21/20 History [Jpqmasj-Roahjlwbm-Hxxf Tablet] Chlorpheniramine Maleate 4 mg PO DAILY PRN 02/21/20 02/21/20 History [Chlor-Trimeton] Levalbuterol HCl [Xopenex] 1.25 mg INHALATION RT-Q6H PRN 02/21/20 02/21/20 History Levothyroxine Sodium [Synthroid] 100 mcg PO DAILY 02/21/20 02/21/20 History Multivitamins, Thera [Multivitamin 1 tab PO DAILY 02/21/20 02/21/20 History (formulary)] PHENobarbitaL [PHENobarbital] See Taper PO DIRECTED 02/21/20 02/21/20 History Thiamine [Vitamin B-1] 100 mg PO DAILY 02/21/20 02/21/20 History predniSONE 50 mg PO DAILY 02/21/20 02/21/20 History traZODone HCL [Desyrel] 50 - 150 mg PO HS 02/21/20 02/21/20 History Allergies Allergy/AdvReac Type Severity Reaction Status Date / Time acetaminophen [From Vicodin] Allergy Unknown Verified 02/21/20 10:18 albuterol Allergy Unknown Verified 02/21/20 10:18 buspirone [From BuSpar] Allergy Unknown Verified 02/21/20 10:18 codeine Allergy Unknown Verified 02/21/20 10:18 diphenhydramine Allergy Unknown Verified 02/21/20 10:18 [From Benadryl] fentanyl Allergy Unknown Verified 02/21/20 10:18 hydrocodone [From Vicodin] Allergy Unknown Verified 02/21/20 10:18 hydromorphone [From Dilaudid] Allergy Unknown Verified 02/21/20 10:18 Iodine and Iodide Containing Allergy Unknown Verified 02/21/20 10:18 Produc ketorolac [From Toradol] Allergy Unknown Verified 02/21/20 10:18 lidocaine Allergy Unknown Verified 02/21/20 10:18 morphine Allergy Unknown Verified 02/21/20 10:18 mustard Allergy Unknown Verified 02/21/20 10:18 NSAIDS (Non-Steroidal Allergy Unknown Verified 02/21/20 10:18 Anti-Inflamma povidone-iodine Allergy Unknown Verified 02/21/20 10:18 [From Betadine] soap [From Betadine] Allergy Unknown Verified 02/21/20 10:18 Sulfa (Sulfonamide Allergy Unknown Verified 02/21/20 10:18 Antibiotics) Physical Exam Vitals: Vital Signs Temp Pulse Pulse Resp BP BP Pulse Ox 02/22/20 08:50 98.4 F 82 18 115/65 02/22/20 03:00 64 16 105/66 96 02/21/20 21:00 98.1 F 82 18 111/59 93 L 02/21/20 15:47 99.2 F 88 16 104/64 96 02/21/20 12:35 98.5 F 72 16 95/63 97 02/21/20 12:03 98.1 F 72 16 119/75 99 02/21/20 11:56 98.1 F 72 16 119/75 99 02/21/20 10:56 98.1 F 70 16 115/70 99 Intake and Output 02/21/20 02/22/20 02/22/20 22:59 06:59 14:59 Output Total 500 250 250 Balance -500 -250 -250 Output: Urine 500 250 250 Other: Voiding Method Toilet Toilet # Voids 2 1 1 Results 02/22/20 07:00 02/22/20 07:00 Cardiac Enzymes 02/21/20 02/21/20 02/22/20 Range/Units 10:21 10:21 07:00 AST 26 (14-36) U/L Troponin I <0.012 <0.012 (0.000-0.034) ng/mL CBC 02/21/20 02/22/20 Range/Units 10:21 07:00 WBC 4.3 6.0 (3.8-10.6) k/uL RBC 4.55 4.06 (3.80-5.40) m/uL Hgb 14.0 12.6 (11.4-16.0) gm/dL Hct 42.7 39.2 (34.0-46.0) % Plt Count 233 215 (150-450) k/uL Comprehensive Metabolic Panel 02/21/20 02/22/20 Range/Units 10:21 07:00 Sodium 136 L 137 (137-145) mmol/L Potassium 3.9 4.0 (3.5-5.1) mmol/L Chloride 102 109 H (98-107) mmol/L Carbon Dioxide 27 25 (22-30) mmol/L BUN 6 L 14 (7-17) mg/dL Creatinine 0.54 0.75 (0.52-1.04) mg/dL Glucose 120 H 135 H (74-99) mg/dL Calcium 9.2 8.8 (8.4-10.2) mg/dL AST 26 (14-36) U/L ALT 13 (4-34) U/L Alkaline Phosphatase 53 (38-126) U/L Total Protein 7.1 (6.3-8.2) g/dL Albumin 4.2 (3.5-5.0) g/dL Current Medications Generic Name Dose Route Start Last Admin Trade Name Freq PRN Reason Stop Dose Admin Acetaminophen 650 mg 02/21/20 16:56 Acetaminophen Tab 325 Mg Tab PO Q4H PRN Pain or Fever > 100.5 Amoxicillin/Clavulanate Potassium 1 each 02/21/20 21:00 02/21/20 19:58 Amoxic-Pot Clav 875-125mg 1 Each Tab PO 1 each Q12HR MELLO Administration Calcium Carbonate 1 each 02/22/20 17:30 Calcium Carb-Vit D 500mg-200un 1 Each Tab PO BID-W/MEALS MELLO Famotidine 20 mg 02/22/20 09:00 02/22/20 08:57 Famotidine 20 Mg Tab PO 20 mg DAILY MELLO Administration Levothyroxine Sodium 100 mcg 02/22/20 06:30 02/22/20 06:12 Levothyroxine 100 Mcg Tab PO 100 mcg 0630 MELLO Administration Lorazepam 1 mg 02/21/20 11:35 Lorazepam 2 Mg/Ml Inj IV Q4HR PRN Seizures Lorazepam 0.5 mg 02/21/20 23:00 Lorazepam 2 Mg/Ml Inj IV 03/22/20 23:01 BID PRN Anxiety Multivitamins 1 each 02/22/20 09:00 02/22/20 08:57 Multivitamins, Thera 1 Each Tab PO 1 each DAILY MELLO Administration Naloxone HCl 0.2 mg 02/21/20 11:36 Naloxone 0.4 Mg/Ml 1 Ml Vial IV Q2M PRN Opioid Reversal Non-Formulary Medication 1.25 mg 02/21/20 16:56 Levalbuterol Hcl [Xopenex] INHALATION RT-Q6H PRN Shortness Of Breath Prednisone 50 mg 02/22/20 09:00 Prednisone 50 Mg Tab PO DAILY MELLO Thiamine HCl 100 mg 02/22/20 09:00 02/22/20 08:58 Thiamine 100 Mg Tab PO 100 mg DAILY MELLO Administration Intake and Output 02/21/20 02/22/20 02/22/20 22:59 06:59 14:59 Output Total 500 250 250 Balance -500 -250 -250 Output: Urine 500 250 250 Other: Voiding Method Toilet Toilet # Voids 2 1 1 02/22/20 07:00 02/22/20 07:00
--- NOTE | 2020-02-22 16:09 | EEG ---
ELECTROENCEPHALOGRAM REPORT EEG REPORT: DATE OF SERVICE: 02/22/2020 CLINICAL HISTORY: This is a 59-year-old woman with history of panic attack and anxiety who is on chronic Xanax and was stopped for 1 week then had an episode of unresponsiveness. This video EEG was obtained to evaluate for seizure and epileptiform activity. Relevant medication is Ativan. EEG TYPE: This is a routine 21 channel EEG was performed with video using the 10-20 electrode placement system. DESCRIPTION: Wakefulness is only obtained. During wakefulness, there is a posterior dominant rhythm of low to moderate voltage, reactive, well modulated, of 9.5-10.5 hertz activity. There was no physiological stage 2 sleep. There is excessive fast activity seen on both hemisphere during the study. INTERICTAL AND ICTAL: None. ACTIVATION PROCEDURE: Photic stimulation did evoke a posterior driving response at low flash frequency. Hyperventilation was not performed because the patient clinical history. CLINICAL INTERPRETATION: This is a normal routine EEG. There are no focal slowing, epileptiform activity or seizure during the study. The excessive fast activity is likely due to medication effect. Clinical correlation is recommended. MMODL / IJN: [id number] / ANG
[2020-02-22] MEDS: CALCIUM CARB-VIT D 500MG-200UN 1 EACH TAB PO SCH (17:18)
[2020-02-23] MEDS: LEVOTHYROXINE 100 MCG TAB PO SCH (06:23)
[2020-02-23] MEDS: predniSONE 50 MG TAB PO SCH (08:37)
[2020-02-23] MEDS: FAMOTIDINE 20 MG TAB PO SCH (08:38)
[2020-02-23] MEDS: CALCIUM CARB-VIT D 500MG-200UN 1 EACH TAB PO SCH ×2 (08:38→16:05)
[2020-02-23] MEDS: AMOXIC-POT CLAV 875-125MG 1 EACH TAB PO SCH (08:38)
[2020-02-23] MEDS: THIAMINE 100 MG TAB PO SCH (08:38)
[2020-02-23] MEDS: MULTIVITAMINS, THERA 1 EACH TAB PO SCH (08:38)
[2020-02-23] MEDS ORDERED: LORazepam 1 MG TAB PO STA (12:06)
[2020-02-23] MEDS ORDERED: LORazepam 0.5 MG TAB PO PRN ×2 (14:23→14:30)
--- NOTE | 2020-02-23 14:40 | P.CN ---
Psychiatric Consult - . Consult date: 02/23/20 Consult:: 02/23/20 14:31 IDENTIFYING DATA: This patient is a 59-year-old female currently lives in a trailer alone his divorce has 3 kids and is unemployed. REASON FOR REFERRAL: Psychiatry was consulted for psychiatric evaluation related to her anxiety. HISTORY OF PRESENT ILLNESS: The patient presented to the hospital over the weekend after and unresponsive episode at [facility]. Patient apparently for the past 2 days was at [facility] for benzodiazepine abuse and was there placed on phenobarbital for withdrawal. Patient claims that after awakening from this episode she felt shaky and had poor recollection of the events that happened according to ER report and was stating that she was using Xanax at home approximately 1 mg 2 times a day. Patient had 2 negative troponins and UDS is positive for barbiturates and ended as a pink. Patient's CT of her head and chest x-ray were unremarkable. Patient was seen today by job specification writer at the bedside and agreeable to speak to job specification writer. Patient appeared to be mildly anxious however states that she's been dealing with panic attacks for several decades now and states that it has gradually gotten worse in the past year or so. She states that she was feeling "weird in my chest" and also shortness of breath and unresponsive at [facility]. She states that she woke up in front of different people there and then was brought into the hospital by EMS. She states that she took phenobarbital for detox and claims that "I didn't react well to that". She states that she has been abusing Xanax at home. She claims that she is getting it from her primary care physician. She states that her [id number] has really been "pushing me a lot to go to rehab". She states that she is willing to go to rehab from the hospital. She states that her mood is "angry and upset" and patient began crying. She states that she got in a fight with her son earlier. She states that she is doing filling mildly depressed for many months now. She states that her sleep is okay and anxiety has been improving while in the hospital. At this time patient denies any suicidal or homical ideations, intent or plan. Patient denies any auditory, visual hallucinations and denies any paranoia or delusions. Patients admits to using Xanax as described above. She does seizing cigarettes as well. PAST PSYCHIATRIC HISTORY: Patient has a a history of anxiety and depression. She claims that she's been on Xanax by her PCP and states that she was also on BuSpar and Lexapro, Celexa in the past however did not respond to them. She claims that she was last admitted to the mental health unit several years ago in [facility] when she was going through a divorce. Patient denies any psychiatric outpatient follow-up. Patient denies any history of suicide attempts in the past. PAST MEDICAL HISTORY: COPD, thyroid disorder, previous back surgery. ALLERGIES: as per EMR. CHEMICAL DEPENDENCY HISTORY: as per HPI. FAMILY PSYCHIATRIC/SUBSTANCE USE HISTORY: Claims that her father abused alcohol and her mother was depressed. SOCIAL HISTORY: Patient was born and raised in she states that [facility] and claims that she completed high school and has no legal problems in the past. She states that she currently lives in a trailer alone with her dog is divorce has 3 kids and is unemployed at this time collecting short-term disability. She states that she is to work as a [employer]. MENTAL STATUS EXAM: General Appearance: Patient appears to be stated age is thin, alert, directable, and guarded at times. Patient appears to have fair hygiene and grooming wearing hospital gown with fair eye contact. Behavior: Patient is calmly lying in bed without any agitated behavior. Mildly anxious. Speech: Patient's speech is fluent and nonpressured. Mood/Affect: Patient reports their mood is "angry and upset", affect is congruent Suicidality/Homicidality: Patient denies having any suicidal or homicidal ideation intent or plan. Perceptions: Patient denies any visual hallucinations and denies any auditory hallucinations Though content/process: There is no evidence of any delusional thought content and thought process is linear and goal-directed. Preoccupied with her medi cations and her symptoms. Memory and concentration: AOX3, grossly intact for the purposes of this session. Can spell "WORLD" backwards Judgment and insight: Limited IMPRESSIONS: Anxiety disorder unspecified, rule out panic disorder History of depressive disorder Benzodiazepine abuse, currently in withdrawal Nicotine dependence PLAN: -At this time patient DOES NOT meet criteria for inpatient psychiatric admission. -Would recommend the following medication changes/additions: Patient is agreeable to start Klonopin 0.5 mg 3 times a day for anxiety with the plan to gradually taper down. Added Ativan 0.5 mg by mouth 3 times a day when necessary for anxiety. Zoloft 50 mg daily for mood/anxiety. -cemetery worker to provide patient with outpatient mental health/psychiatry resources for appropriate follow up upon discharge -Supervisor Die Casting spoke with patient about substance abuse and the harmful effects on medical and mental health, patient verbally understood and agreed. -Communicated plan to patient's nurse and to Dr. Frausto -Will continue to follow along. If patient does well overnight and patient can be discharged back to [facility] tomorrow. -Please contact with any questions.
[2020-02-23] MEDS: clonazePAM 0.5 MG TAB PO SCH ×2 (16:01→21:16)
[2020-02-23] MEDS: SERTRALINE 50 MG TAB PO SCH (16:01)
--- NOTE | 2020-02-23 17:46 | P.PN ---
Subjective This is a pleasant 59 years old female with multiple medical problems including COPD, Or hypothyroidism, back surgery, anxiety and depression. She was on Xanax and went to [facility], there she got phenobarbital rash and she was sent to this hospital because of altered mental status. Workup included CT of the brain and chest x-ray which are unremarkable. Today patient is fully awake and oriented and calm sitting at the age of the bed with no specific complaint currently, she knows she is in [facility] and she was wanted she come from and why. She's been experiencing chest pain every day which lysis for half an hour, she had good this morning at [facility], nonradiating felt like Dull. No dyspnea or coughing. Currently she is chest pain-free. She smokes about 1 pack per day, no alcohol or illicit drugs. She feels a little bit depressed but no overt hopelessness/helplessness, she denies suicidal or homicidal ideation Vitals and labs were reviewed Neurology and psychiatry were already been consulted. Ruled out for cardiology consult in view of her chest pain, order echocardiogram 02/23/2020 The patient was very anxious this morning, however she is fully awake and oriented, no physical complaints, no chest pain or dyspnea or abdominal pain or nausea vomiting. No urinary or bowel problems. No fever. Vitals and labs look stable. Psychiatrist evaluated the patient today and start her on Klonopin to help her with benzodiazepine withdrawal, we going to monitor her overnight and if she is doing well by tomorrow, she can be discharged home on follow-up with [facility] as an outpatient which is voluntarily. I encouraged patient to follow-up with [facility]. Disposition discussed with staff and psychiatry service. Their input is appreciated. Patient already been evaluated by neurology and cardiology service active the patient for discharge. EEG: No epileptiform seizure Objective - Vital Signs Vital signs: Vital Signs Temp 98.8 F 02/23/20 15:00 Pulse 77 02/23/20 15:00 Resp 16 02/23/20 15:00 BP 103/74 02/23/20 15:00 Pulse Ox 96 02/23/20 15:00 Intake & Output 02/22/20 02/23/20 02/23/20 18:59 06:59 18:59 Intake Total 0 400 Output Total 500 Balance -500 400 Intake: Oral 0 400 Output: Urine 500 Other: Voiding Method Toilet Toilet # Voids 2 2 - Exam GENERAL: The patient is alert and oriented x3, not in any acute distress. Well developed, well nourished. HEENT: Pupils are round and equally reacting to light. EOMI. No scleral icterus. No conjunctival pallor. Normocephalic, atraumatic. No pharyngeal erythema. No thyromegaly. CARDIOVASCULAR: S1 and S2 present. No murmurs, rubs, or gallops. PULMONARY: Chest is clear to auscultation, no wheezing or crackles. ABDOMEN: Soft, nontender, nondistended, normoactive bowel sounds. No palpable organomegaly. MUSCULOSKELETAL: No joint swelling or deformity. EXTREMITIES: No cyanosis, clubbing, or pedal edema. NEUROLOGICAL: Gross neurological examination did not reveal any focal deficits. SKIN: No rashes. no petechiae. - Labs CBC & Chem 7: 02/22/20 07:00 02/22/20 07:00 Assessment and Plan Assessment: Anxiety disorder, history of depression. Denies suicidal ideation. Follow-up with psychiatrist recommendation Benzodiazepine withdrawal, recommend patient go back to [facility] upon discharge Chest pain,cardiac causes ruled out. Negative d-dimer. Patient states for discharge by cardiology service Toxic encephalopathy secondary to benzodiazepines Xanax and phenobarbital. Ps ychiatric and neurological review consulted. Patient is fully awake and was cleared she can go back to [facility] or discharge home Hypothyroidism. Her TSH was normal T4 and T3. Continue with levothyroxine and recheck thyroid function test in 1-2 months with her PCP History of back surgery History of PFO, follow-up with mobile game engineer Dr. Harvinder Oshea Winfield, last visit was about 3 years ago. Follow-up with mobile game engineer upon discharge Anxiety, depression. Psychiatric evaluation for the patient Nicotine dependence DVT prophylaxis: Patient is mobile and low risk, no need for heparin GI prophylaxis: Pepcid
[2020-02-24] MEDS: LEVOTHYROXINE 100 MCG TAB PO SCH (06:02)
[2020-02-24] MEDS: MULTIVITAMINS, THERA 1 EACH TAB PO SCH (07:53)
[2020-02-24] MEDS: SERTRALINE 50 MG TAB PO SCH (07:53)
[2020-02-24] MEDS: FAMOTIDINE 20 MG TAB PO SCH (07:53)
[2020-02-24] MEDS: CALCIUM CARB-VIT D 500MG-200UN 1 EACH TAB PO SCH (07:53)
[2020-02-24] MEDS: THIAMINE 100 MG TAB PO SCH (07:54)
[2020-02-24 08:34] VITALS: RESP 16
[2020-02-24] MEDS: clonazePAM 0.5 MG TAB PO SCH ×2 (09:43→16:35)
--- NOTE | 2020-02-24 11:45 | P.PN ---
Progress Note - Text Progress Note Date: 02/24/20 Interval History: Patient was seen today for psychiatric follow-up regarding patient's anxiety and mood. Patient's nurse claims that patient has been doing mildly better in terms of her anxiety and was able to sleep throughout the night except for one time throughout the night she woke up. Patient was started on Klonopin standing dose 0.5 mg 3 times a day along with Zoloft yesterday. Patient was seen at bedside sitting on her bed and appeared to have a brighter affect this morning. She s tates that she is "feeling more optimistic" about her medications and claims that she is able to "smile more today". She claims that her mood has been gradually improving and states that her anxiety is improving as well mildly. She states that she is having no reactions of the medications at this time. She claims that she is willing to go to [facility] today upon discharge. She thanked senior mortgage underwriter for helping her with her medications. At this time patient denies any suicidal or homical ideations, intent or plan. Patient denies any auditory, visual hallucinations and denies any paranoia or delusions. Mental Status Exam: General Appearance: Patient appears to be stated age is thin, alert, directable, and more cooperative today. Patient appears to have fair hygiene and grooming wearing hospital gown with fair eye contact. Behavior: Patient is calmly lying in bed without any agitated behavior. Less anxious today Speech: Patient's speech is fluent and nonpressured. Mood/Affect: Patient reports their mood is "better", affect is congruent Suicidality/Homicidality: Patient denies having any suicidal or homicidal ideation intent or plan. Perceptions: Patient denies any visual hallucinations and denies any auditory hallucinations Though content/process: There is no evidence of any delusional thought content and thought process is linear and goal-directed. Preoccupied with her medications and her symptoms. Memory and concentration: AOX3, grossly intact for the purposes of this session Judgment and insight: improving mildly Assessment Anxiety disorder unspecified, rule out panic disorder History of depressive disorder Benzodiazepine abuse, currently in withdrawal Nicotine dependence Plan: -At this time patient DOES NOT meet criteria for inpatient psychiatric admissio n. -Would recommend the following medication changes/additions: We'll recommend the following titration schedule for Klonopin, 0.5 mg tid X 1 more day, then 0.5 mg bid X 2 days, then 0.5mg daily X 2 days then disctoninue. discontinue prn Ativan. Continue with Zoloft 50 mg daily for mood/anxiety, this dose can be increased to 100 mg if needed in one to 2 weeks as an outpatient or at [facility]. -viscose cellar worker to provide patient with outpatient mental health/psychiatry resources for appropriate follow up upon discharge -Radiation Technician spoke with patient about substance abuse and the harmful effects on medical and mental health, patient verbally understood and agreed. -Communicated plan to patient's nurse -Psychiatrist sign off at this time. Patient will be okay for discharge today to [facility]. -Please contact with any questions.
[2020-02-24 14:24] VITALS: BP 101/67; PULSE 71; TEMP 98.8
--- NOTE | 2020-02-25 07:16 | P.DS ---
Providers Date of admission: 02/21/20 11:36 Attending physician: Rachel Forman Consults: 02/21/20 13:09 Consult Physician Routine Consulting Provider: Jose Raul Bahena Consult Reason/Comments: unresponsive episode, possible benzodiazepine withdrawl seizure Do you want consulting provider notified?: Yes 02/21/20 17:17 Consult Physician Routine Consulting Provider: Ramiro Ocampo Consult Reason/Comments: anxiety Do you want consulting provider notified?: Yes Primary care physician: Physician Nonstaff Hospital Course: Diagnoses Benzodiazepine withdrawal, recommend patient go back to [facility] upon di scharshaji Anxiety disorder, history of depression. Denies suicidal ideation. Started on Zoloft by psychiatrist who cleared her for discharge Chest pain,cardiac causes ruled out. Negative d-dimer. Patient is clear for discharge by cardiology service Toxic encephalopathy secondary to benzodiazepines. Patient is back to her mental baseline, fully awake and oriented over several days prior to discharge Hypothyroidism. Her TSH is slightly elevated with normal T4 and T3. Continue with levothyroxine and recheck thyroid function test in 1-2 months with her PCP History of back surgery History of PFO, follow-up with legal department manager Dr. Harvinder Altamirano in [place], last visit was about 3 years ago. Follow-up with legal department manager upon discharge Anxiety, depression. Psychiatric evaluation for the patient Nicotine dependence Hospital course: This is a pleasant 59 years old female with multiple medical problems including COPD, Or hypothyroidism, back surgery, anxiety and depression. She was on Xanax and went to [facility], there she got phenobarbital rash and she was sent to this hospital because of altered mental status. Workup included CT of the brain and chest x-ray which are unremarkable. Patient states she used to Xanax 1 mg 3 times a day, however her son and [id number] encourage her to quit benzodiazepines and follow-up with [facility], there became unconscious and she was referred to the hospital, next in the hospital she was fully awake and oriented. Also she was complaining of from some chest pain for several months on and off. Patient already been evaluated by neurology and cardiology service who cleared the patient for discharge. Workup was negative. EEG: No epileptiform seizure Patient remained anxious throughout her stay, psychiatrist evaluated the patient , and started her on Klonopin, patient also provided with Klonopin taper prescription upon discharge per recommendation of psychiatrist Day of discharge patient was a little bit anxious, denies suicidal or homicidal ideation, no chest pain or dyspnea. No dizziness or weakness or numbness. No change in urine or bowel habits. Gait is normal. No fever. Patient was cleared for discharge by all consultants including the differences legal department manager as well as the psychiatric service Problems and management plan were discussed with the patient and he verbalized understanding and acceptance Patient was found stable and can be discharged home however he needs follow-up as an outpatient. Patient was instructed to follow up with PCP Jurgen Garza within one week and patient agrees. Patient was instructed to follow up with neurologist as an outpatient and ligated with the contact information for Dr. Vines and Dr. Mabry to call and make appointment within 1 week and she agrees Also patient was instructed on several occasions follow-up [facility] upon discharge which is voluntarily, however not sure if the patient is willing to do that Gen: patient is a AAOx3, no distress CVS: S1-S2, RRR, no murmur Lungs: B/L CTA, no wheezing Abdomen: soft, no distention, no tenderness, positive bowel sounds Extremity: no leg edema or induration Time spent more than 35 minutes Plan - Discharge Summary Discharge Rx Participant: Yes New Discharge Prescriptions: New clonazePAM [KlonoPIN] 0.5 mg PO DIRECTED 5 Days #9 tab Sertraline [Zoloft] 50 mg PO DAILY #30 tab Continue traZODone HCL [Desyrel] 50 - 150 mg PO HS Calcium/Magnesium/Zinc [Xriiicc-Gzvkebrpt-Gzfq Tablet] 2 tab PO TID PRN PRN Reason: CRAMPS Acetaminophen [Tylenol Arthritis] 650 mg PO Q4H PRN PRN Reason: Pain Or Fever > 100.5 Levalbuterol HCl [Xopenex] 1.25 mg INHALATION RT-Q6H PRN PRN Reason: Shortness Of Breath Thiamine [Vitamin B-1] 100 mg PO DAILY Levothyroxine Sodium [Synthroid] 100 mcg PO DAILY Multivitamins, Thera [Multivitamin (formulary)] 1 tab PO DAILY Discontinued Chlorpheniramine Maleate [Chlor-Trimeton] 4 mg PO DAILY PRN PRN Reason: Allergy Symptoms PHENobarbitaL [PHENobarbital] See Taper PO DIRECTED predniSONE 50 mg PO DAILY Amoxic-Pot Clav 875-125Mg [Augmentin 875-125] 1 tab PO Q12HR Discharge Medication List Acetaminophen [Tylenol Arthritis] 650 mg PO Q4H PRN 02/21/20 [History] Calcium/Magnesium/Zinc [Rxejgfz-Rzhwdptzm-Jnhv Tablet] 2 tab PO TID PRN 02/21/20 [History] Levalbuterol HCl [Xopenex] 1.25 mg INHALATION RT-Q6H PRN 02/21/20 [History] Levothyroxine Sodium [Synthroid] 100 mcg PO DAILY 02/21/20 [History] Multivitamins, Thera [Multivitamin (formulary)] 1 tab PO DAILY 02/21/20 [History] Thiamine [Vitamin B-1] 100 mg PO DAILY 02/21/20 [History] traZODone HCL [Desyrel] 50 - 150 mg PO HS 02/21/20 [History] Sertraline [Zoloft] 50 mg PO DAILY #30 tab 02/24/20 [Rx] clonazePAM [KlonoPIN] 0.5 mg PO DIRECTED 5 Days #9 tab 02/24/20 [Rx] Follow up Appointment(s)/Referral(s): Madhuri Vines MD [Medical Doctor] - 1 Week (neurologist referral) Physician Nik [Primary Care Provider] - 1-2 days Jose Raul Mabry MD [STAFF PHYSICIAN] - 1 Week (neurologist referral) [facility] [NON-STAFF] - 1 Week Activity/Diet/Wound Care/Special Instructions: heart healthy diet activity is limited till you see your doctor we recommend to [facility] discharge please follow up with your primary care provider Marvel Garza in one week, please call to make appointment Medical Records Number [phone] Discharge Disposition: HOME SELF-CARE
== END 2020-02-24 17:00 | disposition home or self-care (01) ==
LOC: EC 09:47 → 1SOBS 11:36
PROVIDERS: ADMIT Hospitalist; ATTEND Hospitalist
DX: F13.239 Sedative, hypnotic or anxiolytic dependence with withdrawal, unspecified (principal); T42.4X5A Adverse effect of benzodiazepines, initial encounter; G92 Toxic encephalopathy; R40.4 Transient alteration of awareness; R41.0 Disorientation, unspecified; F41.9 Anxiety disorder, unspecified; F32.9 Major depressive disorder, single episode, unspecified; E03.9 Hypothyroidism, unspecified; Q21.1 Atrial septal defect; F17.210 Nicotine dependence, cigarettes, uncomplicated; L27.0 Generalized skin eruption due to drugs and medicaments taken internally; T42.3X5A Adverse effect of barbiturates, initial encounter; J44.9 Chronic obstructive pulmonary disease, unspecified; G31.9 Degenerative disease of nervous system, unspecified; F02.80 Dementia in other diseases classified elsewhere, unspecified severity, without behavioral disturbance, psychotic disturbance, mood disturbance, and anxiety; F41.0 Panic disorder [episodic paroxysmal anxiety]; E87.1 Hypo-osmolality and hyponatremia; R07.9 Chest pain, unspecified; Z20.828 Contact with and (suspected) exposure to other viral communicable diseases; Z79.890 Hormone replacement therapy; Z79.52 Long term (current) use of systemic steroids; Z79.899 Other long term (current) drug therapy; Z88.5 Allergy status to narcotic agent; Z88.8 Allergy status to other drugs, medicaments and biological substances; Z91.048 Other nonmedicinal substance allergy status; Z88.4 Allergy status to anesthetic agent; Z91.018 Allergy to other foods; Z88.6 Allergy status to analgesic agent; Z88.2 Allergy status to sulfonamides; Z90.49 Acquired absence of other specified parts of digestive tract; Z98.890 Other specified postprocedural states; Z90.710 Acquired absence of both cervix and uterus; Z56.0 Unemployment, unspecified; Z81.1 Family history of alcohol abuse and dependence; Z81.8 Family history of other mental and behavioral disorders; Z82.5 Family history of asthma and other chronic lower respiratory diseases; Z80.9 Family history of malignant neoplasm, unspecified
CPT/HCPCS: 96376; 96361; 96374; 99285; 36415; 95816; 93005; 93306; 85379; 84439; 84481; 80053; 80048; 82550; 83735; 84443; 84484 ×2; 85025 ×2; 81001; 80306; 71045; 70450; G0378 ×4; U0003; J2060 ×2